=== PATIENT | female | born 1970 | race African-American/Black ===

== ENCOUNTER 2017-09-20 19:35 | Inpatient (IN) | payer BC ==
[~2017-09-20] VITALS: Ht 162.6 cm; Wt 104.3 kg
[2017-09-20 21:16] LABS: HEMATOCRIT. 41.1 % (36.0-48.0); HEMOGLOBIN. 13.7 g/dL (12.0-16.0); LYMPHOCYTES % 34.7 % (20.0-50.0); MEAN CORPUSCULAR HEMOGLOBIN 27.6 pg (28.0-32.0); MEAN CORPUSCULAR VOLUME 83.2 fL (81.0-99.0); MEAN PLATELET VOLUME 8.6 fl (7.4-10.4); MONOCYTES % 9.8 % (2.0-8.0); NEUTROPHILS % 52.5 % (40.0-76.0); PLATELET 255 x1000/uL (130-400); RED BLOOD CELL COUNT 4.94 mill/uL (4.2-5.4); RED CELL DISTRIBUTION WIDTH 17.2 % (11.6-14.6)
[2017-09-20 21:24] LABS: CHLORIDE 105 mEq/L (98-107)
[2017-09-20] MEDS ORDERED: LABETALOL 5MG/ML SYR 20 MG/4 ML SYRINGE IV ONE (22:00)
[2017-09-21 00:37] LABS: CLARITY URINE CLEAR (CLEAR); COLOR URINE YELLOW (YELLOW); KETONES URINE NEGATIVE (NEGATIVE); LEUKOCYTE ESTERASE URINE NEGATIVE (NEGATIVE); NITRITE URINE NEGATIVE (NEGATIVE); OCCULT BLOOD URINE 1+ (NEGATIVE); PROTEIN URINE 1+ (NEGATIVE); SPECIFIC GRAVITY URINE 1.022 (1.005-1.030); UROBILINOGEN URINE 0.2 E.U./dL (0.2-1.0)
[2017-09-21] MEDS ORDERED: CLONIDINE 0.2MG TABLET PO ONE (02:15)
[2017-09-21 08:15] VITALS: BP 167/110
[2017-09-21] MEDS ORDERED: AMLODIPINE 10MG TABLET PO SCH (10:00)
[2017-09-21] MEDS ORDERED: AMLO10TA4 PO (10:03)
[2017-09-21 12:00] VITALS: BP 172/121
[2017-09-21 12:03] VITALS: BP 172/121
[2017-09-21] MEDS ORDERED: LOSARTAN POTASSIUM 50 MG TABLET PO SCH (13:30)
[2017-09-21 16:00] VITALS: BP 158/108
[2017-09-21] MEDS ORDERED: CLONIDINE 0.1MG TABLET PO PRN (16:45)
[2017-09-21 17:47] VITALS: BP 152/104
== END 2017-09-21 18:28 | disposition home or self-care (01) | DRG 305 ==
LOC: ER 19:35 → 6EST 09-21 03:55 → ENRESERV 09-21 07:06
PROVIDERS: ADMIT Internal Medicine; ATTEND Internal Medicine
DX: I10 Essential (primary) hypertension (principal); Z60.2 Problems related to living alone; Z98.84 Bariatric surgery status; Z79.899 Other long term (current) drug therapy
CPT/HCPCS: 36415; 71045; 80053; 81003; 81025; 83880; 84484; 85025; 93005; 96374; 99285; J3490